=== PATIENT | female | born 1975 | race Caucasian/White ===

== ENCOUNTER 2016-12-28 17:05 | Inpatient (IN) | payer SELFPAY ==
[~2016-12-28] VITALS: Ht 170.2 cm; Wt 86.2 kg
[2016-12-28 17:32] VITALS: BP 119/66
--- NOTE | 2016-12-28 19:57 | NUR ---
TO ER BED 3
--- NOTE | 2016-12-28 20:05 | NUR ---
PT IS 41/F BIB SELF TO ED WITH C/O VAGINAL BLEEDING X2 DAYS. 1 TAMPON/HR. LLQ PAIN RADIATING DOWN LEFT LEG. PT STATES NO MED HX. DENIES D; SKIN IS PINK/WARM/DRY; AAOX4 WITH EVEN AND STEADY GAIT; LUNGS CLEAR BL; HR EVEN AND REGULAR; PT DENIES ANY FEVER, CP, SOB, OR COUGH AT THIS TIME; PATIENT STATES PAIN OF 8/10 AT THIS TIME; VSS; PATIENT POSITIONED FOR COMFORT; HOB ELEVATED; BEDRAILS UP X2; BED DOWN. ER MD MADE AWARE OF PT STATUS.
[2016-12-28] MEDS ORDERED: KETOROLAC 30 MG/ML VIAL IM ONE (20:30)
[2016-12-28] MEDS ORDERED: ONDANSETRON 4 MG ODT PO ONE (20:30)
--- NOTE | 2016-12-28 20:45 | NUR ---
PT TAKEN OFF UNIT TO CT VIA WHEELCHAIR.
--- NOTE | 2016-12-28 20:54 | NUR ---
PT BACK ON UNIT
--- NOTE | 2016-12-28 20:59 | NUR ---
FEMALE CHAPERONED BEDSIDE FOR DR. MOYER DURING PELVIC EXAM
[2016-12-28] MEDS ORDERED: MORPHINE SULFATE 4 MG/ML SYR IVP ONE ×2 (21:25→22:15)
[2016-12-28] MEDS ORDERED: ONDANSETRON 4 MG/2 ML VIAL IVP ONE (21:25)
[2016-12-28] MEDS ORDERED: ACETAMINOPHEN 325 MG TAB PO PRN (22:35)
[2016-12-28] MEDS ORDERED: LORazepam 2 MG/ML VIAL IVP PRN (22:35)
--- NOTE | 2016-12-28 22:39 | NUR ---
PT RESTING IN BED. NO SOB NOTED AT THIS TIME. WILL CONTINUE TO MONITOR.
[2016-12-28] MEDS ORDERED: KETOROLAC 30 MG/ML VIAL IVP PRN (22:45)
[2016-12-28] MEDS ORDERED: ZOLPIDEM 5 MG TAB PO PRN (22:45)
--- NOTE | 2016-12-28 22:48 | NUR ---
Patient will be admitted to care of DR HEREDIA. Admited to TELE. Will go to [id number]. Belongings list completed. Report to JULIUS TAFOYA.
--- NOTE | 2016-12-28 23:00 | NUR ---
Admitted from E.. with chief complaint of HEAVY VAGINAL BLEEDING & LOWER ABDOMINAL PAIN. A 41 y/o ,Female, Appropriate. ALERT AWAKE ORIENTED X4. INITIAL ASSESSMENT DONE. NO S/S OF RESPIRATORY DISTRESS OR SOB NOTED. C/O LOWER ABDOMINAL PAIN SCA;LING 10. WILL GIVE PRN MEDICATION FOR ABDOMINAL PAIN ORDERED. SKIN IS INTACT CLEAN DRY AND WARM TO TOUCH. PLAN OF CARE REVIEWED TO PT AND FAMILY AT BEDSIDE AND VERBALIZED UNDERSTANDING. Oriented to call light, bed, phone,television, bathroom, smoking policy, visiting hours, procedures, ID bracelet on. Belongings list checked. CALL LIGHT WITHIN REACH. WILL CONTINUE TO MONITOR.
[2016-12-28] MEDS: NACL 0.9% 1,000 ML IV SCH (23:09)
[2016-12-28] MEDS: MORPHINE SULFATE 2 MG/ML SYR IVP PRN (23:42)
[2016-12-28] MEDS: ONDANSETRON 4 MG/2 ML VIAL IVP PRN (23:42)
--- NOTE | 2016-12-29 01:30 | NUR ---
PT IS SLEEPING RIGHT NOW BUT EASILY AROUSABLE. NO S/S OF ANY DISCOMFORT AT THIS TIME. ALL NEEDS ARE ATTENDED. CALL LIGHT WITHIN REACH. WILL CONTINUE TO MONITOR.
[2016-12-29 04:00] VITALS: BP 101/59
--- NOTE | 2016-12-29 05:45 | NUR ---
AM CARE RENDERED. BED LINEN CHANGED. INSTRUCTED PT TO REPOSITION. KEPT CLEAN AND DRY. CALL LIGHT WITHIN REACH. WILL CONTINUE TO MONITOR.
--- NOTE | 2016-12-29 07:05 | NUR ---
RECEIVED REPORT FROM NIGHT NURSE. PT IS IN BED, AAOX4, NO S/S OF DISTRESS NOTED AND HAS C/O LOWER ABD PAIN. WILL MEDICATE PT TO TREAT PAIN. PT IS ON ROOM AIR. IV IS LOCATED IN L AC GAUGE 22 IT IS PATENT AND INTACT. SKIN IS INTACT. NO VAGINAL DISCHARGE NOTED. PT ON TELE MONITORING. BED LOWERED AND CALL LIGHT WITHIN REACH.
--- NOTE | 2016-12-29 07:30 | NUR ---
PT HAS NO S/S OF ANY DISCOMFORT. PLAN OF CARE ENDORSE TO AM SHIFT NURSE FOR CONTINUITY OF CARE.
[2016-12-29] MEDS: MORPHINE SULFATE 2 MG/ML SYR IVP PRN (07:54)
[2016-12-29 08:00] VITALS: BP 109/66
--- NOTE | 2016-12-29 08:03 | NUR ---
PATIENT HAS BEEN SCREENED AND CATEGORIZED MODERATE NUTRITION RISK. PATIENT WILL BE SEEN WITHIN 3-5 DAYS OF ADMISSION. 12/31/16-01/02/[address]
[2016-12-29] MEDS: NACL 0.9% 1,000 ML IV SCH ×2 (09:40→18:31)
[2016-12-29] MEDS: BACLOFEN 10 MG TAB PO SCH ×3 (09:41→17:40)
[2016-12-29] MEDS ORDERED: LORazepam 1 MG TAB PO PRN (10:05)
[2016-12-29] MEDS: HYDROcodone/APAP 5/325 MG 1 TAB TAB PO PRN ×2 (11:00→16:09)
[2016-12-29 11:44] VITALS: BP 99/70
--- NOTE | 2016-12-29 12:15 | NUR ---
PT HAD FAMILY FRIEND AT BEDSIDE. PT AMB TO RESTROOM. PT TOLERATED ACTIVITY WELL. PT HAS NO S/S OF DISTRESS. WILL CONTINUE TO MONITOR.
[2016-12-29] MEDS: ONDANSETRON 4 MG/2 ML VIAL IVP PRN (13:22)
--- NOTE | 2016-12-29 15:00 | NUR ---
ASSISTED PT TO RESTROOM. PT IS NOW IN BED RESTING AND HAS NO S/S OF DISTRESS. WILL CONTINUE TO MONITOR.
[2016-12-29 15:46] VITALS: BP 119/67
[2016-12-29] MEDS ORDERED: LIORESAL10 MG PO (16:53)
[2016-12-29] MEDS ORDERED: MOTRIN600 MG PO ×2 (16:53→17:08)
[2016-12-29] MEDS ORDERED: COLACE100 M1 PO (17:08)
[2016-12-29] MEDS ORDERED: NORCO 10/325 MG1 TAB PO (17:08)
--- NOTE | 2016-12-29 19:26 | NUR ---
DISCHARGE INSTRUCTIONS AND PRESCRIPTIONS HAVE BEEN GIVEN. PT VERBALIZED UNDERSTANDING. IV LINE DISCONTINUED. PT WAITING FOR HER RIDE HOME. ENDORSED PT TO NIGHT NURSE. PT ENDORSED IN STABLE CONDITION.
== END 2016-12-29 19:50 | disposition home or self-care (01) | DRG 556 ==
LOC: MED 17:05 → MTU 22:38
PROVIDERS: ADMIT Family Medicine; ATTEND Family Medicine
DX: M62.838 Other muscle spasm (principal); K52.9 Noninfective gastroenteritis and colitis, unspecified; D25.9 Leiomyoma of uterus, unspecified; E11.65 Type 2 diabetes mellitus with hyperglycemia; R74.0 Nonspecific elevation of levels of transaminase and lactic acid dehydrogenase [LDH]; F12.10 Cannabis abuse, uncomplicated; R31.9 Hematuria, unspecified; N93.8 Other specified abnormal uterine and vaginal bleeding; Z88.0 Allergy status to penicillin; Z98.51 Tubal ligation status